=== PATIENT | male | born 1950 | race Caucasian/White ===

== ENCOUNTER 2017-04-17 12:47 | Emergency (ER) | payer OTHER, BC ==
[~2017-04-17] VITALS: Ht 172.7 cm; Wt 81.7 kg
--- NOTE | ~2017-04-17 | EKG ---
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
--- NOTE | ~2017-04-17 | EKG ---
[place] [address] [facility] [address] ELECTROCARDIOGRAM REPORT Name: SOBEIDA BUITRAGO 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: : 1950 Requested By: Simone So Order Number: [id number] MD: Elio Mg Measurements Intervals [place] Rate: 84 P: 17 CT: 212 QRS: 5 QRSD: 101 T: 95 QT: 400 QTc: 473 Interpretive Statements Sinus rhythm Borderline prolonged CT interval Nonspecific repol abnormality, diffuse leads Compared to ECG 03/14/2012 08:10:29 Early repolarization now present Myocardial infarct finding no longer present Electronically Signed On 04-17-2017 18:07:23 CDT by Elio Mg [email or web address] <ELECTRONICALLY SIGNED> By: Elio Mg MD 04/17/17 1807 1435 143 Elio Mg MD /GAGE
[~2017-04-17 12:47] MED LIST: ASPIRIN325 PO; BYSTOLIC 5 MG5 M1 PO; EFFIENT10 MG PO; LISINOPRIL2.5 MG PO; LIVALO4 MG PO; LOVASTAT10; NITROSTAT0.4 MG SL
[2017-04-17] MEDS ORDERED: RANEXA500 MG PO (13:03)
[2017-04-17 13:27] LABS: HEMATOCRIT 44.3 % (42.0-52.0); HEMOGLOBIN 15.3 gm/dL (14.0-18.0); MCHC 34.4 g/dL (28.0-37.0); MCV 92.9 fL (80.0-100.0); PLATELET COUNT 182 thou/uL (150-400); RBC 4.77 mil/uL (4.50-6.00); RDW 13.2 % (10.5-14.5); WBC 9.4 thou/uL (4.0-11.0)
[2017-04-17 13:30] LABS: MANUAL DIFF YES
[2017-04-17 13:31] LABS: ANION GAP 4 mmol/L (7-16); BUN 15 mg/dL (7-18); CALCIUM 8.8 mg/dL (8.5-10.1); CHLORIDE 106 mmol/L (98-107); CO2 28 mmol/L (21-32); CREATININE 1.3 mg/dL (0.7-1.3); GLUCOSE 118 mg/dL (74-106); POTASSIUM 4.3 mmol/L (3.5-5.1); SODIUM 138 mmol/L (136-145)
[2017-04-17 13:38] LABS: ALBUMIN 4.2 g/dL (3.4-5.0); ALKALINE PHOSPHATASE 97 U/L (46-116); SGOT 22 U/L (15-37); SGPT 22 U/L (30-65); TOTAL BILIRUBIN 1.3 mg/dL (<0.1-1.0); TOTAL PROTEIN 7.8 g/dL (6.4-8.2); TROPONIN-I < 0.04 ng/mL (<0.04-0.07)
[2017-04-17 13:54] LABS: ABSOLUTE NEUTROPHILS 7.7 thou/uL (1.4-8.2); TOTAL CELL COUNT 100
[2017-04-17] MEDS ORDERED: TRAMADOL 50 MG50 MG PO (14:28)
[2017-04-17] MEDS ORDERED: ZOFRAN ODT8 MG PO (14:28)
[2017-04-17] MEDS ORDERED: FLOMAX0.4 MG PO (15:09)
[2017-04-17] MEDS ORDERED: TORADOL 10 MG T10 MG PO (15:09)
[2017-04-17 15:57] LABS: URINE BILIRUBIN NEGATIVE (Negative); URINE BLOOD TRACE (Negative); URINE COLOR YELLOW; URINE GLUCOSE-RANDOM* NEGATIVE (Negative); URINE KETONES TRACE (Negative); URINE LEUKOCYTES-REFLEX NEGATIVE (Negative); URINE PROTEIN (DIPSTICK) NEGATIVE (Negative); URINE SPECIFIC GRAVITY <= 1.005 (1.003-1.035); URINE UROBILINOGEN 0.2 E.U./dl (0.2-1.0)
[2017-04-17 16:01] VITALS: BP 156/91
== END 2017-04-17 16:04 | disposition home or self-care (01) ==
LOC: ER 12:47
PROVIDERS: Emergency Medicine
DX: N20.1 Calculus of ureter (principal); R19.7 Diarrhea, unspecified; I25.10 Atherosclerotic heart disease of native coronary artery without angina pectoris; K21.9 Gastro-esophageal reflux disease without esophagitis; E78.00 Pure hypercholesterolemia, unspecified; F10.99 Alcohol use, unspecified with unspecified alcohol-induced disorder; F12.10 Cannabis abuse, uncomplicated; Z95.5 Presence of coronary angioplasty implant and graft